=== PATIENT | male | born 1995 | race Caucasian/White ===

== ENCOUNTER 2019-07-13 18:10 | Emergency (ER) | payer SELFPAY ==
[2019-07-13 18:21] VITALS: BP 150/65; PULSE 67; RESP 16; TEMP 36.6; O2SAT 99; BMI 19.2
--- NOTE | 2019-07-13 19:06 | XR_ITS ---
WS: [id number] XR chest 1V portable [id number] REASON FOR EXAM: dyspnea/cough FINDINGS: The lung curtis are hyper aerated. No pneumonia, pleural effusion, pulmonary edema, no mass effect. The hilum and apices normal. The heart and mediastinal interfaces normal. XR/XR chest 1V portable [id number] IMPRESSION: Hyperaerated lungs suggesting mild chronic obstructive pulmonary disease.
--- NOTE | 2019-07-13 21:15 | W.ED.SOB ---
HPI - SOB/Dyspnea General: Chief Complaint: Shortness of Breath/Dyspnea Stated Complaint: fever/cough Time Seen by Provider: 07/13/19 21:11 Source: patient Mode of arrival: ambulatory Limitations: no limitations History of Present Illness: HPI Narrative: Patient is a 24-year-old male who presents to ED today with complaints of a cough and stating he wants tested for coronavirus just to make sure I do not have it . Patient has not been running fevers. He has absolutely no shortness of breath. He has not been exposed to anybody with coronavirus. He has not had any recent travel abroad or to affected geographic areas. MD elicited complaint: cough Onset (ago): day(s) Severity: mild Exacerbating factors: nothing Relieving factors: nothing Associated symptoms: Reports no associated symptoms; Deny abdominal pain, chest congestion, chest pain, fever(s), hemoptysis, lightheadedness, nausea, palpitations, syncope or vomiting Treatment prior to arrival: none Review of Systems Const: Denies: fever, chills, body aches, change in appetite, change in weight, fatigue or malaise Eyes: Denies: change in vision, blurry vision, photophobia, eye discomfort or eye discharge ENMT: Denies: throat pain, enlarged tonsils, painful swallowing, swelling of lips/tongue, oral sores/lesions, ear pain, ear discharge, nasal discharge, nasal congestion, post nasal drip or facial/sinus pain Card: Denies: chest pain, palpitations, irregular heart rhythm, edema, lightheadedness, syncope or pre-syncope Resp: Reports: non-productive cough; Denies: shortness of breath, productive cough, pain on inspiration, change in phlegm color, coughing up blood or chest congestion GI: Denies: abdominal pain, nausea, vomiting or diarrhea : Denies: flank pain Musc: Denies: neck pain or back pain Skin/Breast: Denies: rash Neuro: Denies: headache All/Imm: Denies: facial swelling or seasonal allergies PFSH ED PFSH: Social History Smoking and tobacco status: current every day smoker Physical Exam Const: COMMON NORMALS: no apparent distress, average body habitus, oriented x3, no limitations, healthy appearing, alert and well nourished Resp: COMMON NORMALS: normal respiratory effort and clear to auscultation bilaterally AUSCULTATION: clear to auscultation bilaterally Cardio: COMMON NORMALS: regular rate and regular rhythm RATE: regular rate RHYTHM: regular rhythm Neuro: COMMON NORMALS: oriented x3 SENSORIUM/ORIENTATION: Yes alert Skin: COMMON NORMALS: no rashes or lesions noted GENERAL SKIN EXAM: no rashes or lesions noted Course Vital Signs: Vital signs: Vital Signs Temperature 97.8 F 07/13/19 18:21 Pulse Rate 67 07/13/19 18:21 Respiratory Rate 16 07/13/19 18:21 Blood Pressure 150/65 07/13/19 18:21 Pulse Oximetry 99 07/13/19 18:21 MDM - SOB/Dyspnea MDM Narrative: Medical decision making narrative: According to CDC guidelines he does not meet coronavirus testing criteria. Recommend self quarantine over the next 2 weeks. Imaging Data^: CXR: My impression: NAD Discharge Plan Discharge Patient Disposition: Home, Self-Care Clinical Impression: Cough Condition: Stable Discharge Orders: Discharge Order (Routine); Ordered 07/13/19 Ordered By: Brenna Pugh Referrals: Cynthia Lujna DO [Family Provider] - Discharge Diet: Usual diet Discharge Activity: Increase activity as tolerated Discharge Date/Time: 07/13/19 21:24 Coding Level of Care Code ED Quality Improvement Consultant for Margot Hernandez
== END 2019-07-13 21:24 | disposition home or self-care (01) ==
PROVIDERS: Emergency Provider Physician Assistant; Family Provider Family Medicine
DX: R05 Cough (principal); R06.02 Shortness of breath; R50.9 Fever, unspecified; F17.210 Nicotine dependence, cigarettes, uncomplicated
CPT/HCPCS: 12345; 71045; 99281; 99282

== ENCOUNTER 2020-05-09 16:42 | Emergency (ER) | payer SELFPAY ==
[2020-05-09 16:49] VITALS: BP 127/76; PULSE 98; RESP 16; TEMP 36.3; O2SAT 95; BMI 18.4
[2020-05-09 16:51] VITALS: BP 112/71; PULSE 83; RESP 18; O2SAT 96
--- NOTE | 2020-05-09 17:20 | PC.NURSE ---
Read and agree with assessment
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
== END 2020-05-09 17:34 | disposition home or self-care (01) ==
PROVIDERS: Emergency Provider Nurse Practitioner Family
DX: S46.812A Strain of other muscles, fascia and tendons at shoulder and upper arm level, left arm, initial encounter (principal); F17.210 Nicotine dependence, cigarettes, uncomplicated; X58.XXXA Exposure to other specified factors, initial encounter
CPT/HCPCS: 12345; 99281